=== PATIENT | male | born 2000 | race Caucasian/White ===

== ENCOUNTER 2020-03-08 21:15 | Emergency (ER) | payer OTHER ==
[~2020-03-08] VITALS: Ht 182.9 cm; Wt 76.0 kg
[2020-03-08] MEDS ORDERED: ONDANSETRON 2MG/ML, 2ML ONE (21:22)
[2020-03-08] MEDS ORDERED: MORPHINE SULFATE 4 MG/ML, 1ML ONE ×2 (21:22→21:39)
[2020-03-08] MEDS ORDERED: SODIUM CHLORIDE FLUSH 10ML SYR IVF ONE (21:30)
[2020-03-08] MEDS ORDERED: MORPHINE SULFATE 4 MG/ML, 1ML IVPush PRN (21:30)
[2020-03-08] MEDS ORDERED: PROPOFOL 10 MG/ML, 20ML IVPush ONE ×2 (21:30→22:30)
[2020-03-08] MEDS ORDERED: ONDANSETRON 2MG/ML, 2ML IVPush ONE (21:30)
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
[2020-03-08] MEDS ORDERED: PROPOFOL 10 MG/ML, 20ML ONE (21:39)
--- NOTE | 2020-03-08 21:45 | NUR ---
PT PREPPED FOR PROCEDURAL SEDATION. PLACED ON ALL MONITORS. SEE PAPER CHARTING.
--- NOTE | 2020-03-08 22:05 | NUR ---
R shoulder reduction completed. Pt tolerated well. Received total of 300 mg Prop[address]ol given by Dr Garg. Shoulder immobilizer in place. CMS intact. Pt very drowsy but does open eyes to verbal and attempts to answer. Friend at bedside.
--- NOTE | 2020-03-08 22:16 | NUR ---
Repeat xray at bedside.
--- NOTE | 2020-03-08 22:27 | NUR ---
Pt back to baseline at this time. Immobilzer in place. Pt answering all questions appropriately. Pt talking with friend at bedside. VSS. Awaiting repeat xray read.
--- NOTE | 2020-03-08 22:32 | NUR ---
Per ERP, pt to have PO fluids. Pt attempting PO challenge.
[2020-03-08] MEDS ORDERED: HYDROcodone/APAP 5/325 TABLET ONE (22:38)
--- NOTE | 2020-03-08 22:40 | NUR ---
PT STATES R SHOULDER IS BECOMING MORE SORE. DISCUSSED WITH ERP AND ORDER RECEIVED. PT MEDICATED PER JAN. PT TO BE D/C HOME AFTER SEDATION MONITORING.
[2020-03-08] MEDS ORDERED: HYDROcodone/APAP 5/325 TABLET PO ONE (23:00)
[2020-03-08 23:13] VITALS: BP 130/70
--- NOTE | 2020-03-08 23:14 | NUR ---
Pt tolerating PO fluids well. D/C with CMS intact with immobilizer in place. VSS. Ambulates with steady gait. Instructions given to pt and friend.
== END 2020-03-08 23:16 | disposition home or self-care (01) ==
LOC: ED 22:36
DX: S43.004A Unspecified dislocation of right shoulder joint, initial encounter (principal); V27.0XXA Motorcycle driver injured in collision with fixed or stationary object in nontraffic accident, initial encounter; Y93.89 Activity, other specified; Y92.328 Other athletic field as the place of occurrence of the external cause; Y99.8 Other external cause status
CPT/HCPCS: 23650; 73020; 73030; 96374; 96375; 99152; 99285; J2270; J2405; J2704; 99153